=== PATIENT | male | born 1985 | race African-American/Black ===

== ENCOUNTER 2020-07-01 15:36 | Emergency (ER) | payer MEDICAID ==
[~2020-07-01] VITALS: Ht 175.3 cm; Wt 86.2 kg
[~2020-07-01 15:36] MED LIST: ALBUAER3 IN; COMIH INH
[2020-07-01] MEDS ORDERED: ALBUTEROL SULF 2.5 MG/0.5ML(0.5%) NEB SOLN NEB ONE (16:00)
[2020-07-01] MEDS ORDERED: IPRATROPIUM BROM 0.5 MG/2.5ML INH SOL NEB ONE (16:00)
[2020-07-01] MEDS ORDERED: methylPREDNISolone SOD SUCC 125 MG/2 ML VL IM ONE (16:00)
[2020-07-01 17:47] VITALS: BP 142/78
== END 2020-07-01 17:50 | disposition home or self-care (01) ==
LOC: ER 15:36
DX: J45.41 Moderate persistent asthma with (acute) exacerbation (principal)
CPT/HCPCS: 71045; 94640; 96372; 99283; J2930; J7644

== ENCOUNTER 2023-09-29 22:19 | Inpatient (IN) | payer MEDICAID ==
[~2023-09-29] VITALS: Ht 175.3 cm; Wt 81.8 kg
[2023-09-29] MEDS: methylPREDNISolone SOD SUCC 125 MG/2 ML VL IV ONE (22:43)
[2023-09-29] MEDS: SODIUM CHLORIDE 0.9% 1,000 ML IV ONE (22:45)
[2023-09-29] MEDS: IPRATROPIUM BROM 0.5 MG/2.5ML INH SOL HHN ONE (22:52)
[2023-09-29] MEDS: ALBUTEROL SULF 2.5 MG/0.5ML(0.5%) NEB SOLN HHN ONE (22:52)
[2023-09-29 23:07] LABS: Base Excess -2.9 mmol/L (-2.0-2.0)
[2023-09-29 23:07] LABS: Basophils # (auto) 0.1 10 ^3/uL (0-0.2); Basophils % (auto) 0.6 % (0.0-2.0); Eosinophils # (auto) 0.6 10 ^3/uL (0-0.8); Eosinophils % (auto) 7.7 % (0.0-7.0); Hematocrit 47.6 % (41.0-53.0); Hemoglobin 15.5 g/dL (13.5-17.5); Lymphocytes # (auto) 3.5 10 ^3/uL (0.4-5.4); Mean Corpuscular Hemoglobin 27.3 pg (28.0-32.0); Mean Corpuscular Hgb Conc. 32.5 g/dL (32.0-36.0); Mean Corpuscular Volume 83.9 fL (80.0-100.0); Monocytes # (auto) 0.9 10 ^3/uL (0-1.3); Monocytes % (auto) 11.3 % (0.0-12.0); Neutrophils # (auto) 3.2 10 ^3/uL (1.6-8.6); Neutrophils % (auto) 38.4 % (37.0-80.0); Nucleated Red Blood Cells % 0.2 %; Red Blood Cells 5.68 10^6/uL (4.5-5.90); Red Cell Distribution Width 14.1 % (11.8-14.3); White Blood Cell 8.4 10^3/uL (4.4-10.8)
[2023-09-29 23:20] LABS: Alanine Aminotransferase 24 U/L (7-40); Albumin 4.4 g/dL (3.2-4.8); Alkaline Phosphatase 82 U/L (46-116); Anion Gap 6 (5-15); Aspartate Aminotransferase 24 U/L (13-40); BUN/Creatinine Ratio 6.3 (10.0-20.0); Bilirubin, Total 0.4 mg/dL (0.2-1.0); Blood Urea Nitrogen 7 mg/dL (9-23); Calcium 8.9 mg/dL (8.7-10.4); Carbon Dioxide 27 mmol/L (20-30); Chloride 107 mmol/L (98-107); Glucose 96 mg/dL (74-106); Magnesium 2.3 mg/dL (1.6-2.6); Potassium 3.9 mmol/L (3.5-5.1); Sodium 140 mmol/L (136-145); Total Protein 7.3 g/dL (5.7-8.2)
[2023-09-29] MEDS: MAGNESIUM SULFATE 1GM/100ML 100 ML IV SCH (23:25)
[2023-09-29] MEDS: TERBUTALINE SULFATE 1 MG/ML 1ML VIAL SC ONE (23:25)
[2023-09-29] MEDS: ALBUTEROL SULF 2.5 MG/0.5ML(0.5%) NEB SOLN NEB ONE (23:50)
[2023-09-30] VITALS (10 sets, daily range): BP systolic 148–156; BP diastolic 91–92; PULSE 67–94; RESP 14–26; TEMP 98–98.1; O2SAT 93–98
[2023-09-30 00:34] LABS: COVID19 ANTIGEN SOFIA FIA NEGATIVE (NEGATIVE); Rapid Influenza A Negative (Negative); Rapid Influenza B Negative (Negative)
[2023-09-30] MEDS ORDERED: HYDROcodone-ACET 5/325MG TAB PO PRN (01:45)
[2023-09-30] MEDS ORDERED: DOCUSATE SOD 100 MG CAP PO PRN (01:45)
[2023-09-30] MEDS ORDERED: ONDANSETRON HCL 4 MG/2 ML VIAL IV PRN (01:45)
[2023-09-30] MEDS ORDERED: ACETAMINOPHEN 325 MG TAB PO PRN (01:45)
[2023-09-30] MEDS ORDERED: NITROGLYCERIN 0.4 MG SL TAB SL PRN (02:45)
[2023-09-30] MEDS ORDERED: MORPHINE SULFATE INJ 2 MG/ml SYRG IV PRN (02:45)
[2023-09-30] MEDS: methylPREDNISolone SOD SUCC 125 MG/2 ML VL IV SCH (06:01)
[2023-09-30] MEDS: ALBUTEROL SULF 2.5 MG/0.5ML(0.5%) NEB SOLN NEB PRN (06:25)
[2023-09-30 06:51] LABS: Basophils # (auto) 0 10 ^3/uL (0-0.2); Basophils % (auto) 0.2 % (0.0-2.0); Eosinophils # (auto) 0 10 ^3/uL (0-0.8); Hematocrit 46.8 % (41.0-53.0); Hemoglobin 15.3 g/dL (13.5-17.5); Lymphocytes # (auto) 0.9 10 ^3/uL (0.4-5.4); Lymphocytes % (auto) 12.1 % (10.0-50.0); Mean Corpuscular Hemoglobin 27.2 pg (28.0-32.0); Mean Corpuscular Hgb Conc. 32.7 g/dL (32.0-36.0); Mean Corpuscular Volume 83.3 fL (80.0-100.0); Monocytes # (auto) 0.1 10 ^3/uL (0-1.3); Monocytes % (auto) 0.8 % (0.0-12.0); Neutrophils # (auto) 6.2 10 ^3/uL (1.6-8.6); Neutrophils % (auto) 86.9 % (37.0-80.0); Red Blood Cells 5.62 10^6/uL (4.5-5.90); Red Cell Distribution Width 14.4 % (11.8-14.3); White Blood Cell 7.2 10^3/uL (4.4-10.8)
[2023-09-30 07:35] LABS: Alanine Aminotransferase 22 U/L (7-40); Alkaline Phosphatase 79 U/L (46-116); BUN/Creatinine Ratio 7.7 (10.0-20.0); Blood Urea Nitrogen 7 mg/dL (9-23); Calcium 8.8 mg/dL (8.5-10.1); Chloride 107 mmol/L (98-107); Glucose 159 mg/dL (74-106); Potassium 3.9 mmol/L (3.5-5.1); Sodium 139 mmol/L (136-145)
[2023-09-30 07:36] LABS: Albumin 4.4 g/dL (3.2-4.8); Aspartate Aminotransferase 23 U/L (13-40); Bilirubin, Total 0.5 mg/dL (0.2-1.0); Total Protein 7.1 g/dL (5.7-8.2)
[2023-09-30 08:06] LABS: Anion Gap 11 (5-15); Carbon Dioxide 21 mmol/L (20-30)
[2023-09-30] MEDS: FAMOTIDINE (10MG/ML) 2ML VL IV SCH (09:02)
[2023-09-30] MEDS ORDERED: ALBUTEROL SULF 2.5 MG/0.5ML(0.5%) NEB SOLN NEB PRN (10:45)
[2023-09-30] MEDS ORDERED: LACTULOSE 20Gm/30ML SOLN PO PRN (10:45)
[2023-09-30] MEDS: DOXYCYCLINE 100MG/250ML 250 ML IV SCH (11:43)
[2023-09-30] MEDS: ALBUTEROL SULF 2.5 MG/0.5ML(0.5%) NEB SOLN NEB SCH (13:17)
[2023-09-30] MEDS ORDERED: OMEP20TA PO (23:50)
[2023-10-01] VITALS (18 sets, daily range): BP systolic 127–157; BP diastolic 66–99; PULSE 64–100; RESP 16–20; TEMP 97–98.6; O2SAT 93–98
[2023-10-01 05:28] LABS: Basophils # (auto) 0 10 ^3/uL (0-0.2); Basophils % (auto) 0.1 % (0.0-2.0); Eosinophils # (auto) 0 10 ^3/uL (0-0.8); Hemoglobin 15.7 g/dL (13.5-17.5); Lymphocytes # (auto) 1.8 10 ^3/uL (0.4-5.4)
[2023-10-01 05:30] LABS: Lymphocytes % (auto) 10.7 % (10.0-50.0); Mean Corpuscular Hemoglobin 27.1 pg (28.0-32.0); Mean Corpuscular Hgb Conc. 32.8 g/dL (32.0-36.0); Mean Corpuscular Volume 82.5 fL (80.0-100.0); Monocytes % (auto) 5.6 % (0.0-12.0); Neutrophils # (auto) 14.2 10 ^3/uL (1.6-8.6); Neutrophils % (auto) 83.6 % (37.0-80.0); Nucleated Red Blood Cells % 0.1 %; Red Blood Cells 5.82 10^6/uL (4.5-5.90); Red Cell Distribution Width 14.2 % (11.8-14.3)
[2023-10-01 05:44] LABS: Alanine Aminotransferase 21 U/L (7-40); Albumin 4.6 g/dL (3.2-4.8); Alkaline Phosphatase 82 U/L (46-116); Anion Gap 7 (5-15); Aspartate Aminotransferase 20 U/L (13-40); BUN/Creatinine Ratio 11.2 (10.0-20.0); Blood Urea Nitrogen 11 mg/dL (9-23); Carbon Dioxide 25 mmol/L (20-30); Chloride 104 mmol/L (98-107); Glucose 122 mg/dL (74-106); Potassium 4.8 mmol/L (3.5-5.1); Sodium 136 mmol/L (136-145)
[2023-10-01 05:45] LABS: Bilirubin, Total 0.5 mg/dL (0.2-1.0); Total Protein 7.4 g/dL (5.7-8.2)
[2023-10-01] MEDS ORDERED: ENOXAPARIN SOD 40 MG/0.4 ML SYRINGE SC SCH (10:00)
[2023-10-01] MEDS: LISINOPRIL 10 MG TAB PO ONE (10:36)
[2023-10-01] MEDS: DOXYCYCLINE 100MG/250ML 250 ML IV ONE (10:36)
[2023-10-01] MEDS ORDERED: FLUT110A INH (12:58)
[2023-10-01] MEDS ORDERED: LOSA100T58 PO (12:58)
[2023-10-01] MEDS: methylPREDNISolone SOD SUCC 125 MG/2 ML VL IV SCH (16:10)
[2023-10-01] MEDS: DOXYCYCLINE 100 MG TAB/CAP PO SCH (21:37)
[2023-10-01] MEDS: FAMOTIDINE 20 MG TAB PO SCH (21:37)
[2023-10-02] VITALS (15 sets, daily range): BP systolic 147–154; BP diastolic 49–96; PULSE 58–111; RESP 14–20; TEMP 97.9–98.1; O2SAT 93–99
[2023-10-02] MEDS: hydrALAZINE HCL 20 MG/ML VL IV PRN (05:38)
[2023-10-02 06:54] LABS: Urine Bacteria NONE SEEN /hpf (None Seen); Urine Blood Negative /uL (Negative); Urine Clarity Clear (Clear); Urine Mucus FEW (None Seen); Urine Protein, UAD Negative (Negative); Urine Specific Gravity 1.016 (1.001-1.035); Urine Urobilinogen Normal (Negative); Urine WBC <1 /hpf (0 - 3)
[2023-10-02 06:58] LABS: Urine Color Straw (Yellow)
[2023-10-02] MEDS: LISINOPRIL 10 MG TAB PO SCH (09:46)
[2023-10-02] MEDS ORDERED: PRED20TA2 PO (10:53)
[2023-10-02] MEDS ORDERED: DOX100T PO (10:53)
== END 2023-10-02 12:50 | disposition home or self-care (01) | DRG 141 ==
LOC: EDBD 22:19 → ER 22:19 → TELE 09-30 02:38 → TELE-WESTW 09-30 23:10
PROVIDERS: ADMIT Nurse Practitioner Family; ATTEND Internal Medicine
PROC: 5A09357 Assistance with Respiratory Ventilation, Less than 24 Consecutive Hours, Continuous Positive Airway Pressure (ICD-10-PCS; principal; 2023-09-29)
PROC: 5A09357 Assistance with Respiratory Ventilation, Less than 24 Consecutive Hours, Continuous Positive Airway Pressure (ICD-10-PCS; 2023-10-01)
PROC: 5A09357 Assistance with Respiratory Ventilation, Less than 24 Consecutive Hours, Continuous Positive Airway Pressure (ICD-10-PCS; 2023-10-02)
DX: J45.902 Unspecified asthma with status asthmaticus (principal); J96.01 Acute respiratory failure with hypoxia; J15.69 Pneumonia due to other Gram-negative bacteria; J44.1 Chronic obstructive pulmonary disease with (acute) exacerbation; J15.9 Unspecified bacterial pneumonia; I10 Essential (primary) hypertension; F17.290 Nicotine dependence, other tobacco product, uncomplicated; T38.0X5A Adverse effect of glucocorticoids and synthetic analogues, initial encounter; Z20.822 Contact with and (suspected) exposure to COVID-19; R73.9 Hyperglycemia, unspecified
CPT/HCPCS: 36415; 36600; 71046; 80053; 81001; 82805; 83036; 83605; 83735; 83880; 84484; 85025; 85379; 87426; 87804; 94640; 94660; 96372; 96374; G0378; J3490

== ENCOUNTER 2025-05-04 23:37 | Emergency (ER) | payer MEDICAID ==
[~2025-05-04] VITALS: Ht 175.3 cm; Wt 82.0 kg
[~2025-05-04 23:37] MED LIST changes: +DOX100T PO; +FLUT110A INH; +LOSA-535 PO; +OMEP20TA PO; +PRED20TA2 PO
[2025-05-05 00:15] VITALS: BP 138/88; PULSE 74; RESP 20; TEMP 98.2; O2SAT 97
[2025-05-05] MEDS ORDERED: CEPH500C PO (00:25)
[2025-05-05] MEDS ORDERED: ACET500T58 PO (00:25)
--- NOTE | 2025-05-05 00:25 | ED.PDOC ---
HPI Comments 39-year-old male presents to ER with complaints of laceration to left thumb x 30 minutes. Patient reports that his left thumb made impact with a sharp metal lid of a soup cans 30 minutes prior to arrival to ER and sustained laceration to left thumb at that time. He reports 9/10 pain localized to laceration to left thumb without radiation. Denies use of medications for current symptoms and presents to ER ambulatory, in no distress. Denies numbness/tingling or any further symptoms/complaints Chief Complaint: Laceration Time Seen by MD: 23:52 Primary Care Provider: UNKNOWN Reviewed Notes: Nurses Notes, Medications, Allergies Allergies: Coded Allergies: NO KNOWN ALLERGIES (Unverified , 05/07/15) Home Meds Active Scripts Cephalexin Monohydrate (Cephalexin) 500 Mg Cap, 1 CAP PO BID for 7 Days, #14 CAP 0 Refills Prov:JOSR SCHREIBER 05/05/25 Acetaminophen (Acetaminophen) 500 Mg Tab, 500 MG PO Q4HPRN, #30 TAB 0 Refills Prov:JOSR SCHREIBER 05/05/25 Prednisone (Prednisone) 20 Mg Tab, 20 MG PO QAM for 5 Days, #10 MG Prov:LUCAS WAY MD 10/02/23 Doxycycline Monohydrate (Doxycycline Monohydrate) 100 Mg Tab, 100 MG PO BID for 5 Days, #10 TAB Prov:LUCAS WAY MD 10/02/23 Albuterol Sulfate (VENTOLIN MDI) 90 Mcg Ih, 90 MCG IN Q6HPRN PRN, #1 INHALER Prov:ANGIE WEBBER MD 05/08/15 Ipratropium-Albuterol (COMBIVENT INHALER) 1 In Ih, 2 PUFF INH QID, #14.7 GRAMS 5 Refills Prov:ANGIE WEBBER MD 05/08/15 Reported Medications Fluticasone Propionate (FLOVENT HFA 110Mcg INH) 110 Mcg Ih, 110 MCG INH BID for 30 Days, MCG 10/01/23 Losartan Potassium (Losartan Potassium) 100 Mg Tab, 1 TAB PO DAILY, #90 TAB 1 Refill 10/01/23 Omeprazole (Gnp Omeprazole) 20 Mg Tab, 20 MG PO DAILY, TAB 09/30/23 Information Source: Patient Mode of Arrival: Ambulatory Complexity: Simple Last Tetanus: UTD Laceration Length (cm): 4 Past Medical History PAST MEDICAL HISTORY: Asthma Surgical History: Denies all surgeries Family History Family History: Unknown Social History Smoker: Non-Smoker Alcohol: Denies ETOH Use Drugs: Denies Drug Use Lives In: Home Constitutional: denies: chills, diaphoresis, fatigue, fever, malaise, sweats, weakness, others EENTM: denies: blurred vision, double vision, ear bleeding, ear discharge, ear drainage, ear pain, ear ringing, eye pain, eye redness, hearing loss, mouth pain, mouth swelling, nasal discharge, nose bleeding, nose congestion, nose pain, photophobia, tearing, throat pain, throat swelling, voice changes, others Respiratory: denies: cough, hemoptysis, orthopnea, SOB at rest, shortness of breath, SOB with excertion, stridor, wheezing, others Cardiovascular: denies: chest pain, dizzy spells, diaphoresis, Dyspnea on exertion, edema, irregular heart beat, left arm pain, lightheadedness, palpitations, PND, syncope, others Gastrointestinal: denies: abdomen distended, abdominal pain, blood streaked bowels, constipated, diarrhea, dysphagia, difficulty swallowing, hematemesis, melena, nausea, poor appetite, poor fluid intake, rectal bleeding, rectal pain, vomiting, others Genitourinary: denies: burning, dysuria, flank pain, frequency, hematuria, incontinence, penile discharge, penile sore, pain, testicle pain, testicle swelling, urgency, others Neurological: denies: dizziness, fainting, headache, left sided numbness, left sided weakness, numbness, paresthesia, pre-existing deficit, right sided numbness, right sided weakness, seizure, speech problems, tingling, tremors, weakness, others Musculoskeletal: denies: back pain, gout, joint pain, joint swelling, muscle pain, muscle stiffness, neck pain, others Integumetry: reports: others (As stated in HPI) Allergic/Immunocompromised: denies: Difficulty Healing, Frequent Infections, Hives, Itching, others Hematologic/Lymphatic: denies: anemia, blood clots, easy bleeding, easy bruisin g, swollen glands, others Endocrine: denies: excessive hunger, excessive sweating, excessive thirst, excessive urination, flushing, intolerance to cold, intolerance to heat, unexplained weight gain, unexplained weight loss, others Psychiatric: denies: anxiety, bipolar disorder, depression, hopeless, panic disorder, schizophrenia, sleepless, suicidal, others Physical Exam General Appearance: No Apparent Distress HEENT: PERRL/EOMI Neck: Full Range of Motion, Non-Tender, Normal Respiratory: Chest Non-Tender, Lungs Clear, No Accessory Muscle Use, No Respiratory Distress, Normal Breath Sounds Cardiovascular: No Murmur, No Gallop, Regular Rate/Rhythm Breast Exam: Deferred Gastrointestinal: No Organomegaly, Non Tender, No Pulsatile Mass, Normal Bowel Sounds, Soft Genitalia: Deferred Pelvic: Deferred Rectal: Deferred Extremities: Normal capillary refill, Normal range of motion Neurologic: Alert, No Motor Deficits, Normal Affect, Normal Mood, No Sensory D eficits Cerebellar Function: Normal Reflexes: Normal Skin: Dry, Warm, Other (4 cm laceration noted to palmar surface of left 1st finger. Slight TTP/swelling/erythema localized to wound edges. No foreign body/bony tenderness/nailbed injury/further skin changes noted. Patient able to fully move all fingers of left hand. Pulses intact) Peripheral Pulses: 2+ Radial (R), 2+ Radial (L), 2+ Brachial (R), 2+ Brachial (L) Lymphatic: No Adenopathy Was a procedure done? Was a procedure done?: Yes Sedation Sedation?: No Laceration Repair : Location Left 1st finger Length 4 cm Anesthetic: Lidocaine (1%), Without epi Laceration Repair Prep: Saline (and peroxide), by Irrigation (without any signs of foreign body) Laceration Repair Wound Comple: epidermis/dermis repair Laceration Repair: Number of sutures (7 placed - patient tolerated well without any complication), Size (5-0), Nylon, Simple, Non-adherent gauze Informed consent obtained: Yes Risks, benefits, and alternati: Yes Differential diagnosis Generic Laceration: Fracture, Retained Foriegn Body, Neurovascular Injury, Tendon Injury X-Ray, Labs, Meds, VS Vital Signs Date Time Temp Pulse Resp B/P (MAP) Pulse Ox O2 Delivery O2 Flow Rate FiO2 05/04/25 23:40 98.2 74 20 138/88 97 98.2 Patient neurovascularly intact and reported improvement in symptoms prior to di myrna Wound care/cleaning discussed and advised Advised to follow up with PCP in 1-2 days Patient verbalized understanding and agreeable with current plan of care Advised to return to ER immediately if symptoms worsen Time of 1ST Reevaluation: 00:04 Reevaluation 1ST: N/A Patient Education/Counseling: Diagnosis, Treatment, Prognosis, Need For Follow Up Family Education/Counseling: No Family Present Departure 1 Departure Time of Disposition: 00:24 Impression: Primary Impression: Laceration of left thumb Qualified Codes: S61.012A - Laceration without foreign body of left thumb without damage to nail, initial encounter Disposition: HOME / SELF CARE / HOMELESS Condition: Stable e-Prescriptions Cephalexin Monohydrate (Cephalexin) 500 Mg Cap 1 CAP PO BID for 7 Days, #14 CAP 0 Refills Prov: JOSR SCHREIBER 05/05/25 Acetaminophen (Acetaminophen) 500 Mg Tab 500 MG PO Q4HPRN, #30 TAB 0 Refills Prov: JOSR SCHREIBER 05/05/25 Discharged With: Friend Critical Care Note Critical Care Time?: No Stability Stability form required: No Heart Score Heart Score: Heart Score Response (Comments) Value History N/A 0 EKG N/A 0 Age N/A 0 Risk Factors N/A 0 Troponin N/A 0 Total 0 JOSR SCHREIBER May 05, 2025 00:25
== END 2025-05-05 00:52 | disposition home or self-care (01) ==
LOC: ER 23:39
DX: S61.012A Laceration without foreign body of left thumb without damage to nail, initial encounter (principal); J45.909 Unspecified asthma, uncomplicated; Z79.899 Other long term (current) drug therapy; X58.XXXA Exposure to other specified factors, initial encounter; Y93.89 Activity, other specified; Y92.89 Other specified places as the place of occurrence of the external cause; Y99.8 Other external cause status
CPT/HCPCS: 12002